=== PATIENT | male | born 1935 | race Caucasian/White ===

== ENCOUNTER 2021-01-23 17:54 | Observation (INO) | payer MEDICARE, SELFPAY ==
--- NOTE | 2021-01-23 17:52 | EKG12_ITS ---
Test Reason : ADM EKG Blood Pressure : / mmHG Vent. Rate : 061 BPM Atrial Rate : 061 BPM P-R Int : 216 ms QRS Dur : 096 ms QT Int : 454 ms P-R-T Axes : 043 -67 048 degrees QTc Int : 457 ms Sinus rhythm with 1st degree A-V block Left anterior fascicular block Nonspecific T wave abnormality Abnormal ECG When compared with ECG of 12-DEC-2005 10:06, CA interval has increased Criteria for Inferior infarct are no longer Present Confirmed by ALOK JENSEN, SAIMA ([id number]), avid editor JAVIER CHAVEZ ([id number]) on 01/24/2021 2:01:44 PM Referred By: AL Confirmed By:SAIMA DICKINSON MD
[2021-01-23 19:30] VITALS: BP 166/95; PULSE 80; RESP 20; TEMP 36.5; O2SAT 96
--- NOTE | 2021-01-23 19:54 | HP.PCM.HOS_ITS ---
HPI - General General Date of Admission: 01/23/21 HPI Narrative ARTIS BREWER, is a 85 M with a significant past medical history of hypertension; and CKD stage IV who presented to [facility] on 01/23/2021 with dyspnea. His dyspnea has been going on for a couple of years. In the past 3 months his dyspnea worsened. His dyspnea initially was with exertion but on the day of presentation his dyspnea was at rest. Associated with symptom is orthopnea and proximal nocturnal dyspnea. Also he reports a postnasal drip and chest pain. He has chest pain that he attributes hiatal hernia. [facility] Medical History Depression Enlarged prostate Gout HTN (hypertension) Home Medications allopurinol 100 mg PO BID 01/23/21 [History Last Taken Unknown] amlodipine 2.5 mg PO.IVFORM DAILY 01/23/21 [History Last Taken Unknown] colchicine 0.6 mg PO Q6H PRN PRN 01/23/21 [History Last Taken Unknown] doxazosin [Cardura] 4 mg PO BID 01/23/21 [History Last Taken Unknown] famotidine [Pepcid] 20 mg PO DAILY 01/23/21 [History Last Taken Unknown] fluoxetine 20 mg PO/SL DAILY 01/23/21 [History Last Taken Unknown] spironolactone 25 mg PO/SL DAILY 01/23/21 [History Last Taken Unknown] Allergy/AdvReac Type Severity Reaction Status Date / Time Gadolinium-MRI Contrast Allergy PT UNSURE Verified 01/23/21 20:40 Medium OF REACTION [CONTRAST] Iodine and Iodide Containing Allergy PT UNSURE Verified 01/23/21 20:40 Produc OF REACTION Family History Other Asthma Surgical History H/O left heart catheterization by ventricular puncture History of herniorrhaphy Hx of appendectomy Social History household members: none number of children: 3 service: No current occupational status: retired pets and animals: Yes (dog-shitzo) Smoking Status: Former smoker ROS ROS Narrative Constitutional: Denies fever, chills, fatigue, anorexia and change in weight Eyes: Denies blurry vision, change in eye color, change in vision, discharge from eye(s), double vision, erythema, eye pain, loss of vision or other HEENT: Denies abnormal hearing, dysphagia, ear pain, epistaxis, headache(s), hearing loss, nasal congestion, nasal discharge, post nasal drip, sinus pressure, sore throat or other Cardiovascular: Report chest pain. Reports dyspnea on exertion, orthopnea and paroxysmal nocturnal dyspnea. Denies palpitations Respiratory/Chest: Reports cough. Reports postnasal drip. Gastrointestinal: Denies abdominal pain, coffee ground emesis, constipation, diarrhea, dyspepsia, hematemesis, hematochezia, loose stools, melena, nausea, vomiting or other Genitourinary: Denies burning urination, difficulty urinating, dysuria, hematuria, nocturia, urinary frequency, urinary hesitancy, urinary incontinence, urinary urgency or other Musculoskeletal: Denies arthralgias, back pain, joint pain, joint stiffness, joint swelling, myalgias, neck pain or other Neurologic: Denies abnormal gait, abnormal speech, confusion, disequilibrium, dizziness, focal weakness, headache(s), numbness, paresthesias, seizure-like activity, seizures, syncope, tingling, tremor(s) or other Psychiatric: Denies anxiety, depression, homicidal ideation, suicidal ideation or other Endocrinology: Denies change in body appearance, cold intolerance, excessive sweating, heat intolerance, polydipsia, polyuria or other Hematologic/Lymphatic: Denies anemia, easy bleeding, easy bruising, lymphadenopathy or other Integumentary: Denies rashes Allergic/Immunologic: Denies rhinitis, hives, eczema, asthma or other Physical Exam Narrative Physical exam: General: Well-nourished, well-developed. Head: Normocephalic, atraumatic, no tenderness Eyes: PERRLA, EOMI ENT, no trauma, moist mucous membranes, no rhinorrhea Neck: Nontender, full range of motion, no spinal tenderness, deformities, step- off CVS: Regular rate and rhythm. S1-S2 present. No murmur, gallop or rub. Respiratory : clear to auscultation bilaterally, chest wall nontender, no wheezing Abdomen: Soft, nontender, nondistended, normal bowel sounds, no masses : Deferred Back: Nontender, no CVA tenderness, no midline spinal tenderness, deformities, step-offs Extremities: Nontender full range of motion, no trauma Skin: Normal color, no trauma, abrasions Neuro: Alert, oriented, cranial nerves II through XII grossly intact. Psychiatry: Normal mood. Normal affect. Not depressed. Not anxious. Assessment & Plan Assessment/Plan (1) Dyspnea: QUALIFIERS: Dyspnea type: dyspnea on exertion Qualified Code(s): R06.00 - Dyspnea, unspecified (2) Chest pain: QUALIFIERS: Chest pain type: unspecified Qualified Code(s): R07.9 - Chest pain, unspecified PLAN: Dyspnea on exertion/chest pain Place on a monitored bed at PCU Reportedly CTPA at outside hospital showed no PE, no overload, no cardiomegaly, no pneumonia. COVID-19 PCR was negative. EKG from outside hospital with nonspecific ST?T wave changes. Received 4 baby aspirin at outside hospital and was started on heparin drip at outside hospital. On arrival at our hospital ([facility]) high sensitivity troponin x2 was normal so heparin drip was discontinued. ASA 81 mg p.o. daily ordered We will check lipid panel. Stat EKG as needed for chest pain Echocardiogram and treadmill stress test ordered. Trend CBC and CMP. Gout Allopurinol continued. Hold as needed colchicine Hypertension Blood pressure is not within goal Amlodipine and spironolactone continued. Doxazosin continued. Trend blood pressure and adjust blood pressure medications. DVT prophylaxis SCD ordered Charges/Coding Visit Charges OBSV E&M: 89002 Initial observation care L2
--- NOTE | 2021-01-23 20:02 | ECHOD_ITS ---
Reason For Study: DYSPNEA Procedure This was a 2D Doppler, Color Flow transthoracic echocardiogram. Exam performed in department. Left Ventricle Normal LV size. Left ventricular systolic function is normal. The estimated ejection fraction is 60 %. No regional wall motion abnormalities noted. Right Ventricle Normal RV size. Normal systolic function. Atria Normal left atrium. Normal right atrium. Mitral Valve Normal mitral valve. Tricuspid Valve Normal tricuspid valve. Aortic Valve Trisinus/trileaflet aortic valve. Trivial aortic valve insufficiency. Pulmonic Valve Normal pulmonic valve. Great Vessels Normal aortic root. The pulmonary artery is normal size. Normal inferior vena cava. Pericardium/Pleural No pericardial effusion. MMode/2D Measurements & Calculations LVIDd: 5.0 cm IVSd: 1.3 cm Ao root diam: 4.0 cm LVIDs: 3.0 cm LVPWd: 1.3 cm RVDd: 4.0 cm FS: 39.4 % LAV(MOD-bp): 81.5 ml LVAd ap4: 35.6 cm2 LVAd ap2: 31.2 cm2 LAV(MOD-bp) Indexed: 37.9 ml/m2 LVLd ap4: 8.7 cm LVLd ap2: 9.0 cm LAV(MOD-sp2): 81.2 ml EDV(MOD-sp4): 115.9 ml EDV(MOD-sp2): 97.4 ml LAV(MOD-sp4): 81.3 ml EDV(sp4-el): 123.4 ml EDV(sp2-el): 92.1 ml LVAs ap4: 18.3 cm2 LVAs ap2: 15.2 cm2 LVLs ap4: 6.8 cm LVLs ap2: 6.9 cm ESV(MOD-sp4): 40.5 ml ESV(MOD-sp2): 29.1 ml ESV(sp4-el): 41.4 ml ESV(sp2-el): 28.2 ml EF(MOD-sp4): 65.0 % EF(MOD-sp2): 70.2 % EF(sp4-el): 66.4 % SV(MOD-sp4): 75.4 ml SV(MOD-sp2): 68.3 ml SV(sp4-el): 82.0 ml LA dimension(2D): 3.5 cm LA A4 area: 25.9 cm2 RA A4 area: 23.4 cm2 Doppler Measurements & Calculations MV E max wing: 58.2 cm/sec Lat Peak E' Wing: 6.0 cm/sec Med Peak E' Wing: 5.3 cm/sec MV A max wing: 91.0 cm/sec E/E' lat: 9.7 E/E' med: 11.0 MV E/A: 0.64 Ao V2 max: 135.9 cm/sec AI max wing: 440.3 cm/sec LV V1 max: 91.7 cm/sec Ao max P.4 mmHg AI max P.6 mmHg LV V1 max P.4 mmHg AI dec slope: 224.2 cm/sec2 AI P1/2t: 575.1 msec TR max wing: 264.9 cm/sec TR max P.1 mmHg ECHO/Echo Complete Interpretation Summary Normal LV size. Left ventricular systolic function is normal. The estimated ejection fraction is 60 %. Trivial aortic valve insufficiency. Ordering Physician: Jerry Byrnes Referring Physician: LYDIA BELLO Performed By: Sneha Santo, JENARO, RVT
[2021-01-23 20:20] VITALS: PULSE 73
[2021-01-23 20:41] VITALS: BMI 27.2
[2021-01-23 21:04] LABS: International Normalized Ratio 1.2; Prothrombin Time (Protime)PT. 14.2 SECONDS (11.7-14.9)
[2021-01-23 21:15] LABS: Magnesium 1.8 mg/dL (1.6-2.6)
[2021-01-23 21:21] LABS: Partial Thromboplast Time 91.9 Seconds (24.1-36.2)
[2021-01-23] MEDS: HEPARIN/D5w 25,000 UNITS 25,000 UNITS/250 ML IV.SOLN. 10 UNITS IV (21:32)
[2021-01-23 21:36] LABS: Troponin-I HS 8 pg/mL (3.0-78.0)
--- NOTE | 2021-01-23 21:36 | NURSING ---
Pt was admitted from [facility] heparin drip was infusing since 1630 this afternoon. rate was at 100 u/hr upon admission. after discussion from pharmacy titrated to 900ml/hr based on ptt, pt was never at 1200 units an hour as was entered here based on his weight. next ptt entered for 0330.
[2021-01-23 22:51] LABS: Troponin-I HS 7 pg/mL (3.0-78.0)
[2021-01-23] MEDS: 0.9% Normal Saline 1,000 ML 100 ML IV (23:22)
[2021-01-23] MEDS: Famotidine 20 MG Tablet PO (23:22)
[2021-01-23] MEDS: Acetaminophen 325 MG Tablet 650 MG PO (23:26)
--- NOTE | 2021-01-23 23:40 | NURSING ---
2 troponins negative, per physican order heparin drip dc'd at this time
[2021-01-24] VITALS (7 sets, daily range): BP systolic 166–171; BP diastolic 84–95; PULSE 55–72; RESP 16; TEMP 36.5–36.6; O2SAT 95–96
[2021-01-24] MEDS: Allopurinol 100 MG Tablet PO (00:07)
[2021-01-24] MEDS: Doxazosin 4 MG Tablet PO ×2 (00:07→12:44)
[2021-01-24] MEDS: Acetaminophen 325 MG Tablet 650 MG PO (03:26)
[2021-01-24 05:28] LABS: Troponin-I HS 7 pg/mL (3.0-78.0)
--- NOTE | 2021-01-24 05:36 | PCS.PANDOC ---
PANDEMIC DOCUMENTATION INITIATED: Date: 10/16/2020 Time: 190
--- NOTE | 2021-01-24 05:55 | EKG12_ITS ---
Test Reason : AM EKG Blood Pressure : / mmHG Vent. Rate : 057 BPM Atrial Rate : 057 BPM P-R Int : 224 ms QRS Dur : 096 ms QT Int : 434 ms P-R-T Axes : 061 -60 007 degrees QTc Int : 422 ms Sinus bradycardia with 1st degree A-V block with Premature atrial complexes Left axis deviation Nonspecific T wave abnormality Abnormal ECG When compared with ECG of 23-JAN-2021 20:42, MANUAL COMPARISON REQUIRED, DATA IS UNCONFIRMED Confirmed by ALOK JENSEN, SAIMA ([id number]), publications editor JAVIER CHAVEZ ([id number]) on 01/26/2021 7:23:34 AM Referred By: AL Confirmed By:SAIMA DICKINSON MD
[2021-01-24] MEDS: Aspirin 81 MG TAB.CHEW PO (06:04)
[2021-01-24] MEDS: hydrALAZINE 20 MG/ML Vial 10 MG IV (06:14)
[2021-01-24] MEDS: 0.9% Saline Lock 10 ML Syringe IV (06:15)
[2021-01-24] MEDS: 0.9% Normal Saline 1,000 ML 100 ML IV (06:20)
[2021-01-24 06:29] LABS: Absolute Lymphocyte Count 0.45 X10^3/uL (0.83-4.51); Absolute Neutrophil Count 12.8 X10^3/uL (2.0-7.7); Basophil# 0.02 X10^3/uL; Basophil% 0.1 % (0-1); Hematocrit 33.9 % (40-54); Lymphocyte # 0.45 X10^3/ul (0.83-4.51); Lymphocyte % 3.3 % (19-41); Mean Corp Hgb Conc 35.4 g/dL (32-36); Mean Corpuscular Hgb 32.3 pg (27.0-32.0); Mean Corpuscular Volume 91.1 fL (80-94); Monocyte# 0.21 X10^3/uL; Monocyte% 1.6 % (0-10); NRBC Flagged by Analyzer 0 % (0-5); Neutrophil # 12.75 X10^3/uL (2.7-7.7); Neutrophil % 94.6 % (47-70); POSITIVE DIFFERENTIAL YES; Platelet Count 114 K/mm3 (150-450); RBC Distribution Width SD 43.1 fl (35.1-43.9); Red Blood Count 3.72 M/mm3 (4.6-6.2); White Blood Count 13.5 K/mm3 (4.4-11.0)
[2021-01-24 06:32] LABS: Differential Indicated SCAN CRITERIA MET
[2021-01-24 06:57] LABS: ALB/GLOB Ratio 0.8 RATIO (0.9-2.4); AST(SGOT) 15 U/L (15-37); Alanine Aminotransfer ALT/SGPT 20 U/L (16-61); Albumin, Serum 2.8 g/dL (3.2-5.0); Alkaline Phosphatase 78 U/L (45-117); Anion Gap 9 (5-15); BUN 33 mg/dL (7-18); BUN/Creat Ratio 17.7 RATIO (10-20); Calcium,Total 8.4 mg/dL (8.5-10.1); Chloride 110 mmol/L (98-107); Cholesterol 135 mg/dL (200); Creatinine, Serum 1.86 mg/dL (0.70-1.30); EST Glomerular Filtration Rate 37 mL/min (>60); Est Glom Filt Rate - Afr Amer 45 mL/min (>60); Estimated Creatinine Clearance 31.29 ml/min; Globulin 3.5 g/dL (2.2-4.2); Glucose 159 mg/dL (74-106); High Density Lipoprotein 48 mg/dL; Potassium 4.5 mmol/L (3.5-5.1); Protein, Total 6.3 g/dL (6.4-8.2); Sodium Level 139 mmol/L (136-145); Triglycerides 56 mg/dL; Very Low Density Lipoprotein 11 mg/dL (5-40)
[2021-01-24 07:05] LABS: Differential Comment SCANNED
[2021-01-24] MEDS: Fluticasone 0.05% 1 SPRAY NASAL.SRY 2 SPRAY NASAL (10:07)
[2021-01-24] MEDS: amLODIPine 2.5 MG Tablet PO (12:44)
--- NOTE | 2021-01-24 13:03 | STRESSREP ---
Stress Test Report Exercise myocardial perfusion stress test. 85-year-old man with a history of shortness of breath. Stress protocol: Resting EKG demonstrates sinus bradycardia with a rate of 59 bpm normal intervals are noted resting blood pressure is 168/80 mmHg. The patient exercised according to regular Nik protocol for total duration of 4 minutes and 19 seconds. The maximum heart rate attained was 148 bpm which was 110% of maximum predicted heart rate the maximum workload was 7 metabolic equivalents. The patient maintained sinus rhythm throughout the recording with occasional premature ventricular complexes as well as premature atrial complexes. At rest there were no ST changes noted to suggest ischemia and at peak exercise upsloping ST changes were noted with did not meet the criteria for ischemia. There was shortness of breath noted at peak exercise the test was terminated due to the same. The peak blood pressure was 168/80 mmHg. No obvious clinical angina was noted. Myocardial perfusion protocol. 15.0 mCi of technetium 99m sestamibi was injected at rest. The patient exercised according to regular Nik protocol for 4 minutes and 19 seconds and at peak exercise 44.6 mCi of technetium 99m sestamibi was injected stress images were obtained stress and rest images were reconstructed and compared in the short axis vertical long horizontal long axis. Gated images were also obtained per Perfusion SPECT analysis: Review of the stress images demonstrate normal uptake of tracer noted in the septum anterior wall and lateral wall. There is a defect noted along the inferior wall in the mid and basal regions on the stress images. The resting images demonstrate a similar pattern. The above is suggestive of a previous inferior infarct. No obvious ischemia is noted. Gated SPECT analysis: The gated ejection fraction is 63%. Conclusion: Exercise myocardial perfusion stress test with no evidence of ischemia. Previous inferior infarct noted. Preserved ejection fraction.
--- NOTE | 2021-01-24 14:20 | PCM.DC ---
Discharge Instructions Diet Discharge Diet: Low fat / Low cholesterol Activity Discharge Activity: Return to Normal Activity Dressing / Incision Call your doctor if you observe: Fever of 101 or Higher, Shortness of breath, Dizziness, Fainting spells, Swelling in the ankles, Chest pain and Increased palpitations (irregular heartbeat) Follow Up Care Test Results: Test results from this visit will be discussed in further detail at your follow-up appointment, if applicable. Discharge Plan Admission Admit Date/Time: 01/23/21 17:54 Attending Provider: Cornelius Heredia Primary Care Provider: Alyssa Trevino Instructions Additional Instructions / Restrictions: Follow-up with your PCP in 3 to 5days to monitor your white blood cell count which was little bit elevated in the absence of fever. Also your activated partial thromboplastin time was elevated indicating a clotting dysfunction. I do recommend she follow-up for this as well to have outpatient lab work to monitor this as well as potential referral to a human resources hr generalist. Would also recommend outpatient follow-up with a service technician copier to evaluate the dyspnea and shortness of breath as well as chest pressure since the stress test and echo were unremarkable. Discharge Orders/Prescriptions Prescriptions: Continued allopurinol 100 mg Tablet 100 mg PO BID RF: 0 doxazosin [Cardura] 4 mg Tablet 4 mg PO BID RF: 0 fluoxetine 20 mg PO/SL DAILY RF: 0 amlodipine 2.5 mg PO.IVFORM DAILY RF: 0 spironolactone 25 mg PO/SL DAILY RF: 0 colchicine 0.6 mg Tablet 0.6 mg PO Q6H PRN PRN (Reason: gout) RF: 0 famotidine [Pepcid] 20 mg Tablet 20 mg PO DAILY RF: 0 Referrals / Follow Up: Alyssa Trevino MD [Primary Care Provider] - Within 1 Week Disposition Disposition (needs filled in before D/C Order can be placed): Home, Self Care
--- NOTE | 2021-01-24 14:26 | PCM.DC.SUM ---
Providers Date of Admission: 01/23/21 Primary Care Physician: Dr. Lydia Trevino MD Reason For Visit: CHEST PAIN, ? UNSTABLE ANGINA Diagnosis Discharge Diagnosis (1) Dyspnea: Status: Acute Code(s): R06.00 - Dyspnea, unspecified Qualifiers: Dyspnea type: dyspnea on exertion Qualified Code(s): R06.00 - Dyspnea, unspecified (2) Chest pain: Status: Acute Code(s): R07.9 - Chest pain, unspecified Qualifiers: Chest pain type: unspecified Qualified Code(s): R07.9 - Chest pain, unspecified Medications at Discharge Home Medications allopurinol 100 mg PO BID 01/23/21 amlodipine 2.5 mg PO.IVFORM DAILY 01/23/21 colchicine 0.6 mg PO Q6H PRN PRN 01/23/21 doxazosin [Cardura] 4 mg PO BID 01/23/21 famotidine [Pepcid] 20 mg PO DAILY 01/23/21 fluoxetine 20 mg PO/SL DAILY 01/23/21 spironolactone 25 mg PO/SL DAILY 01/23/21 Hospital Course Operations None Procedures 2-D Echocardiogram and Nuclear stress test Summary of Care Provided Minutes Spent on Discharge: 40 Hospital Course: Per HPI: ARTIS BREWER, is a 85 M with a significant past medical history of hypertension; and CKD stage IV who presented to [facility] on 01/23/2021 with dyspnea. His dyspnea has been going on for a couple of years. In the past 3 months his dyspnea worsened. His dyspnea initially was with exertion but on the day of presentation his dyspnea was at rest. Associated with symptom is orthopnea and proximal nocturnal dyspnea. Also he reports a postnasal drip and chest pain. He has chest pain that he attributes hiatal hernia. Hospital Course: 1. Acute on exertion with chest pain?85-year-old male presents to the hospital as a transfer from an outside hospital secondary to dyspnea on exertion and chest pain. He has been having dyspnea for the last several months but he states it is getting worse. He has difficulty breathing whenever he crosses his arms over his chest. He currently denies any chest pain or shortness of breath at this time and his stress test and echo were unremarkable for any ischemic changes. EKG and troponins are also normal. Of note he does have chronic kidney disease stage IV so his creatinine was little bit elevated here at 1.86 however we do not have any with comparisons from outside hospitals. Also of note he had an elevated white count without a fever. He denies any recent illnesses though he does have a postnasal drip. CTA of the chest at the outside hospital was unremarkable therefore I do recommend follow-up as an outpatient for this issue. Of note last night his activated partial thromboplastin time was elevated however it was noted in the admission note that he had been placed on a heparin drip at the outside hospital which was discontinued on admission here. Given the chronicity of his dyspnea I do recommend that he follow-up with pulmonology as an outpatient. I discussed with him the plan for discharge today and he expressed understanding of the risk benefits of going home and would like to go home today. Physical Exam Const alert, oriented x3 and no apparent distress General Appearance: cooperative HEENT normocephalic and moist oral mucous membranes Eyes PERRL, EOMs intact bilaterally and conjunctivae normal Neck supple and no JVD Resp normal respiratory effort, no retractions, no use of accessory muscles and clear to auscultation bilaterally Auscultation: Negative for crackles, rales, rhonchi or wheezes Cardio regular rate, regular rhythm, S1 normal heart sound, S2 normal heart sound and no murmurs GI soft to palpation, non-tender and non-distended; Negative for hepatosplenomegaly Extremity no clubbing, cyanosis or edema Skin no rashes or lesions noted Neuro no focal motor deficits and no sensory deficits noted Psych affect normal Appearance: appropriate Weight / BMI Weight Weight: 202 lb 9.677 oz Body Mass Index (BMI) 27.2 ABG / Lab / Microbiology Data Result Diagrams: 01/24/21 05:46 01/24/21 05:46 Laboratory: Laboratory Results - last 24 hr 01/23/21 20:35: PT 14.2, INR 1.2, APTT 91.9 H* 01/23/21 20:35: Magnesium 1.8 01/23/21 20:35: Troponin I High Sens 8 01/23/21 22:03: Troponin I High Sens 7 01/24/21 02:40: Troponin I High Sens 7 01/24/21 05:46: WBC 13.5 H, RBC 3.72 L, Hgb 12.0 L, Hct 33.9 L, MCV 91.1, MCH 32.3 H, MCHC 35.4, RDW Std Deviation 43.1, RDW Coeff of Ryanne 13.0, Plt Count 114 L, MPV 10.0, Immature Gran % (Auto) 0.400, Neut % (Auto) 94.6 H, Lymph % (Auto) 3.3 L, [place] % (Auto) 1.6, Eos % (Auto) 0.0, Baso % (Auto) 0.1, Absolute Neuts (auto) 12.8 H, Absolute Lymphs (auto) 0.45 L, Nucleated RBC % 0, Differential Comment SCANNED 01/24/21 05:46: Sodium 139, Potassium 4.5, Chloride 110 H, Carbon Dioxide 20.0 L, Anion Gap 9, BUN 33 H, Creatinine 1.86 H, Estim Creat Clear Calc 31.29, Est GFR (MDRD) Af Amer 45 L, Est GFR (MDRD) Non-Af 37 L, BUN/Creatinine Ratio 17.7, Glucose 159 H, Calcium 8.4 L, Total Bilirubin 0.80, AST 15, ALT 20, Alkaline Phosphatase 78, Total Protein 6.3 L, Albumin 2.8 L, Globulin 3.5, Albumin/Globulin Ratio 0.8 L, Triglycerides 56, Cholesterol 135, LDL Cholesterol 76, VLDL Cholesterol 11, HDL Cholesterol 48 Radiography Diagnostic Testing: Radiology Impression Echocardiogram 01/23/21 20:02 Interpretation Summary Normal LV size. Left ventricular systolic function is normal. The estimated ejection fraction is 60 %. Trivial aortic valve insufficiency. Ordering Physician: Jerry Byrnes Referring Physician: LYDIA TREVINO Performed By: Sneha Santo, JENARO, RVT D/C Instructions Discharge Diet: Low fat / Low cholesterol Call your doctor if you observe: Fever of 101 or Higher, Shortness of breath, Dizziness, Fainting spells, Swelling in the ankles, Chest pain and Increased palpitations (irregular heartbeat) Meaningful Use Info Meaningful Use Diagnoses (Choose all that apply): None applicable Discharge Plan Admission Admit Date/Time: 01/23/21 17:54 Attending Provider: Cornelius Heredia Primary Care Provider: Lydia Trevino Instructions Additional Instructions / Restrictions: Follow-up with your PCP in 3 to 5days to monitor your white blood cell count which was little bit elevated in the absence of fever. Also your activated partial thromboplastin time was elevated indicating a clotting dysfunction. I do recommend she follow-up for this as well to have outpatient lab work to monitor this as well as potential referral to a relationship counselor. Would also recommend outpatient follow-up with a supervisor roving to evaluate the dyspnea and shortness of breath as well as chest pressure since the stress test and echo were unremarkable. Discharge Orders/Prescriptions Prescriptions: Continued allopurinol 100 mg Tablet 100 mg PO BID RF: 0 doxazosin [Cardura] 4 mg Tablet 4 mg PO BID RF: 0 fluoxetine 20 mg PO/SL DAILY RF: 0 amlodipine 2.5 mg PO.IVFORM DAILY RF: 0 spironolactone 25 mg PO/SL DAILY RF: 0 colchicine 0.6 mg Tablet 0.6 mg PO Q6H PRN PRN (Reason: gout) RF: 0 famotidine [Pepcid] 20 mg Tablet 20 mg PO DAILY RF: 0 Referrals / Follow Up: Lydia Trevino MD [Primary Care Provider] - Within 1 Week Disposition Disposition (needs filled in before D/C Order can be placed): Home, Self Care Charges/Coding Visit Charges OBSV E&M: 37792 Observation care discharge
--- NOTE | 2021-01-24 14:45 | CASEMGMT ---
MYRNA MCNEILL NOTE: Pt being discharged home. MYRNA MCNEILL to room. Introduced self and role. Pt states he lives alone and is independent. He denies having any concerns or need w/going home @ discharge. His dtr will take him home @ d/c and he denies having any concerns re: transportation. Monica RICON MYRNA MCNEILL
== END 2021-01-24 14:50 | disposition home or self-care (01) ==
PROVIDERS: Hospitalist; Admitting Provider Family Medicine; PCP Internal Medicine Infectious Disease; Visit Provider Family Medicine
DX: R07.89 Other chest pain (principal); R06.00 Dyspnea, unspecified; M10.9 Gout, unspecified; I12.9 Hypertensive chronic kidney disease with stage 1 through stage 4 chronic kidney disease, or unspecified chronic kidney disease; N18.4 Chronic kidney disease, stage 4 (severe); N40.0 Benign prostatic hyperplasia without lower urinary tract symptoms; F32.A Depression, unspecified; Z79.899 Other long term (current) drug therapy; Z87.891 Personal history of nicotine dependence; I44.0 Atrioventricular block, first degree; I44.4 Left anterior fascicular block; I35.1 Nonrheumatic aortic (valve) insufficiency
CPT/HCPCS: 36415; 78452; 80053; 80061; 83735; 84484; 85025; 85610; 85730; 93005; 93017; 93306; 96361; 96365; 96366; 96375; 99218; 99251; A9500; J7030; A4216; G0378; G0463

== ENCOUNTER → 2022-10-01 | Outpatient (CLI) | payer MEDICARE, SELFPAY | END | disposition home or self-care (01) | PROVIDERS: PCP Internal Medicine Infectious Disease; Referring Provider Internal Medicine Critical Care Medicine; Visit Provider Internal Medicine Critical Care Medicine | DX: G47.10 Hypersomnia, unspecified (principal) | CPT/HCPCS: 95810 ==

== ENCOUNTER → 2022-10-08 | Outpatient (CLI) | payer MEDICARE, SELFPAY ==
--- NOTE | 2022-10-08 14:37 | ECHOD_ITS ---
Reason For Study: Dyspnea/SOB Procedure This was a 2D Doppler, Color Flow transthoracic echocardiogram. Exam performed in department. Left Ventricle Normal LV size. Mild concentric left ventricular hypertrophy. Left ventricular systolic function is normal. Stage 1 diastolic dysfunction. No regional wall motion abnormalities noted. Right Ventricle Normal RV size. Normal systolic function. Atria The left atrium is mildly enlarged. Normal right atrium. Mitral Valve Normal mitral valve. Tricuspid Valve Normal tricuspid valve. Aortic Valve Trisinus/trileaflet aortic valve. Mild (1+) aortic valve insufficiency. Pulmonic Valve Normal pulmonic valve. Great Vessels Normal aortic root. The pulmonary artery is normal size. Normal inferior vena cava. Pericardium/Pleural No pericardial effusion. MMode/2D Measurements & Calculations LVIDd: 5.4 cm IVSd: 1.2 cm Ao root diam: 3.7 cm LVIDs: 3.9 cm LVPWd: 1.2 cm LA dimension: 4.2 cm RVDd: 4.3 cm FS: 27.9 % LAV(MOD-bp): 53.0 ml LA A4 area: 18.0 cm2 RA A4 area: 23.3 cm2 LAV(MOD-bp) Indexed: 24.3 ml/m2 LAV(MOD-sp2): 63.7 ml LAV(MOD-sp4): 44.3 ml Time Measurements MV dec time: 0.36 sec Doppler Measurements & Calculations MV E max wing: 38.2 cm/sec Lat Peak E' Wing: 6.0 cm/sec Med Peak E' Wing: 4.7 cm/sec MV A max wing: 71.4 cm/sec E/E' lat: 6.3 E/E' med: 8.1 MV E/A: 0.53 MV V2 max: 87.7 cm/sec MV P1/2t max wing: 52.0 cm/sec Ao V2 max: 104.4 cm/sec MV max P.1 mmHg MV P1/2t: 144.6 msec Ao max P.4 mmHg MV V2 mean: 36.2 cm/sec MV dec slope: 105.4 cm/sec2 Ao V2 mean: 73.9 cm/sec MV mean P.64 mmHg MVA(P1/2t): 1.5 cm2 Ao mean P.4 mmHg MV V2 VTI: 25.7 cm Ao V2 VTI: 23.3 cm AV (velocity ratio): 0.82 AI max wing: 412.4 cm/sec LV V1 max: 76.8 cm/sec PA V2 max: 93.1 cm/sec AI max P.1 mmHg LV V1 max P.4 mmHg PA V2 mean: 58.5 cm/sec LV V1 mean P.1 mmHg AI dec slope: 102.7 cm/sec2 LV V1 mean: 49.0 cm/sec AI P1/2t: 1176 msec LV V1 VTI: 19.1 cm ECHO/Echo Complete Interpretation Summary Normal LV size. Left ventricular systolic function is normal. Mild concentric left ventricular hypertrophy. Stage 1 diastolic dysfunction. Mild (1+) aortic valve insufficiency. Ordering Physician: Nik Reyes Referring Physician: Nik Reyes Performed By: Eloy Shah RCS
== END | disposition home or self-care (01) ==
PROVIDERS: PCP Internal Medicine Infectious Disease; Referring Provider Internal Medicine Critical Care Medicine; Visit Provider Internal Medicine Critical Care Medicine
DX: R06.00 Dyspnea, unspecified (principal); R06.02 Shortness of breath
CPT/HCPCS: 93306

== ENCOUNTER → 2022-10-24 | Outpatient (CLI) | payer MEDICARE, SELFPAY ==
--- NOTE | 2022-10-28 07:45 | PFT ---
INTRODUCTION: The patient is a an 87-year-old male who presents for pulmonary function studies secondary to a diagnosis of dyspnea. Respiratory therapy reported good patient effort. Bronchodilators were used during testing. INTERPRETATION: Forced expiration spirometry demonstrates no evidence of a large airways obstructive ventilatory defect. There was no significant response to aerosolized bronchodilators. Spirograms are of good quality and plateau gradually indicating slow emptying of the lungs. Body plethysmography was performed and revealed a decreased TLC to 6.42 L, 83% of predicted, indicative of a mild restrictive ventilatory impairment. Diffusing capacity by single breath CO was reduced to 66% of predicted. 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
== END | disposition home or self-care (01) ==
LOC: PSN 09:46
PROVIDERS: PCP Internal Medicine Infectious Disease; Referring Provider Internal Medicine Critical Care Medicine; Visit Provider Internal Medicine Critical Care Medicine
DX: R06.00 Dyspnea, unspecified (principal)
CPT/HCPCS: 94060; 94726; 94729

== ENCOUNTER → 2023-01-08 | Outpatient (CLI) | payer MEDICARE, SELFPAY ==
[2023-01-08 12:30] VITALS: PULSE 73; PULSE 74; PULSE 80; PULSE 90; PULSE 91; PULSE 95; PULSE 97; O2SAT 93; O2SAT 95; O2SAT 96; O2SAT 97; O2SAT 98
--- NOTE | 2023-01-10 07:40 | WT_ITS ---
PSN 6 Minute Walk Test 6 Minute Walk Test 6 Minute Walk Test: 6 Minute Walk Test PSN:6-Minute Walk Test Start: 01/08/23 12:37 Freq: Status: Active Protocol: RESP.6MINW Document 01/08/23 12:30 AEH (Rec: 01/08/23 12:41 [facility] Desktop) 6 Minute Walk Test Date Performed 01/08/23 Time Performed 12:30 Height 6 ft 1 in Weight: 87.09 kg Weight in Pounds 192.[address]: Dr Reyes Assistive device used: None Pre-test Oxygen Delivery Method Room Air Pulse Ox 95 Pulse Rate (60-100) 73 Dyspnea Delvis Scale (0-10) 0 Exertion Delvis Scale (6-20) 6 1st minute Oxygen Delivery Method Room Air Pulse Ox 98 Pulse Rate (60-100) 80 2nd minute Oxygen Delivery Method Room Air Pulse Ox 95 Pulse Rate (60-100) 90 3rd minute Oxygen Delivery Method Room Air Pulse Ox 93 Pulse Rate (60-100) 91 4th minute Oxygen Delivery Method Room Air Pulse Ox 96 Pulse Rate (60-100) 97 5th minute Oxygen Delivery Method Room Air Pulse Ox 97 Pulse Rate (60-100) 95 6th minute Oxygen Delivery Method Room Air Pulse Ox 95 Pulse Rate (60-100) 91 Dyspnea Delvis Scale (0-10) 0 Exertion Delvis Scale (6-20) 13 Post-test Oxygen Delivery Method Room Air Pulse Ox 95 Pulse Rate (60-100) 74 Full Laps Walked 15 Partial Lap, Number of Tiles Walked 0 Total Distance Walked (ft) 885 Interpretation Interpretation: The patient was able to ambulate 885 feet over the course of 6 minutes on room air with no assistive devices or breaks. The patient did experience desaturation as low as 93%, but had no tachycardia during testing. These findings are consistent with a musculoskeletal limitation exercise tolerance. Recommendations Recommendations: No supplemental oxygen is indicated at this time.
== END | disposition home or self-care (01) ==
LOC: PSN 12:12
PROVIDERS: PCP Internal Medicine Infectious Disease; Referring Provider Internal Medicine Critical Care Medicine; Visit Provider Internal Medicine Critical Care Medicine
DX: R06.00 Dyspnea, unspecified (principal)
CPT/HCPCS: 94618

== ENCOUNTER → 2023-03-05 | Outpatient (CLI) | payer MEDICARE, SELFPAY ==
--- OUTSIDE RECORDS SUMMARY | 2023-03-05 22:01 | XMS RPT_ITS | CCD ---
Author Name Unknown Address [address] [place] [address] Organization [facility] Care Team Providers Care Ferry Captain Name Role Phone SARAH KIMBERLEY E Unavailable Unavailable OMRAN, YASSER Unavailable Unavailable SARAH, KIMBERLEY E Unavailable Unavailable OMRAN, YASSER Unavailable Unavailable CRISTEL, KARLENE Unavailable Unavailable OMRANCHULAER Unavailable Unavailable KATI, FRANKIE Unavailable Unavailable OMRAN, YASSER Unavailable Unavailable WEINER, BRUNILDA Unavailable Unavailable LUCY, KATELYN Unavailable Unavailable JAMMOUL, ADHAM Unavailable Unavailable RILEY JALLOH Unavailable Unavailable OMRANCHULAER Unavailable Unavailable OMLYDIA COLEMAN Unavailable Unavailable LYDIA TREVINO Unavailable Unavailable BUCKTOWARSING, BHAVNISH Primary Care Unavaila ble BUCKTOWARSINBOBBY Booth Attending Unavaila ble BUCKTOWARSINBOBBY Booth Admitting Unavaila ble LYDIA TREVINO MD Consulting Unavailable PROVIDER, UNKNOWN Consulting Unavailable PROVIDER, UNKNOWN Consulting Unavailable PROVIDER, UNKNOWN Consulting Unavailable LYDIA TREVINO MD Consulting Unavailable BOBBY PAGAN MD Primary Care Unava ilable BOBBY PAGAN MD Attending Unava ilable BUCKBOBBY GALVAN MD Admitting Unava ilable PROVIDER, UNKNOWN Consulting Unavailable PROVIDER, UNKNOWN Consulting Unavailable PROVIDER, UNKNOWN Consulting Unavailable LYDIA TREVINO MD Consulting Unavailable LYDIA TREVINO MD Admitting Unavailable LYDIA TREVINO MD Attending Unavailable LYDIA TREVINO MD Primary Care Unavailable PROVIDER, UNKNOWN Consulting Unavailable PROVIDER, UNKNOWN Consulting Unavailable PROVIDER, UNKNOWN Consulting Unavailable LYDIA TREVINO MD Consulting Unavailable LYDIA TREVINO MD Admitting Unavailable LYDIA TREVINO MD Attending Unavailable LYDIA TREVINO MD Primary Care Unavailable PROVIDER, UNKNOWN Consulting Unavailable PROVIDER, UNKNOWN Consulting Unavailable PROVIDER, UNKNOWN Consulting Unavailable LYDIA TREVINO MD Consulting Unavailable LYDIA TREVINO MD Admitting Unavailable LYDIA TREVINO MD Attending Unavailable LYDIA TREVINO MD Referring Unavailable LYDIA TREVINO MD Primary Care Unavailable PROVIDER, UNKNOWN Consulting Unavailable PROVIDER, UNKNOWN Consulting Unavailable PROVIDER, UNKNOWN Consulting Unavailable JULIA, ANTONY PAC Primary Care Unavailable JULIA, ANTONY PAC Attending Unavailable LYDIA TREVINO MD Consulting Unavailable JULIA, ANTONY PAC Admitting Unavailable PROVIDER, UNKNOWN Consulting Unavailable PROVIDER, UNKNOWN Consulting Unavailable PROVIDER, UNKNOWN Consulting Unavailable LYDIA TREVINO MD Consulting Unavailable LYDIA TREVINO MD Attending Unavailable LYDIA TREVINO MD Admitting Unavailable LYDIA TREVINO MD Primary Care Unavailable PROVIDER, UNKNOWN Consulting Unavailable PROVIDER, UNKNOWN Consulting Unavailable PROVIDER, UNKNOWN Consulting Unavailable LYDIA TREVINO MD Consulting Unavailable LYDIA TREVINO MD Attending Unavailable LYDIA TREVINO MD Admitting Unavailable LYDIA TREVINO MD Primary Care Unavailable PROVIDER, UNKNOWN Consulting Unavailable PROVIDER, UNKNOWN Consulting Unavailable PROVIDER, UNKNOWN Consulting Unavailable LYDIA TREVINO MD Consulting Unavailable BOBBY PAGAN MD Primary Care Unava ilable BOBBY PAGAN MD Attending Unava ilBOBBY Ovalle MD Admitting Unava ilable PROVIDER, UNKNOWN Consulting Unavailable PROVIDER, UNKNOWN Consulting Unavailable PROVIDER, UNKNOWN Consulting Unavailable LYDIA TREVINO MD Consulting Unavailable LYDIA TREVINO MD Admitting Unavailable LYDIA TREVINO MD Attending Unavailable LYDIA TREVINO MD Primary Care Unavailable PROVIDER, UNKNOWN Consulting Unavailable PROVIDER, UNKNOWN Consulting Unavailable PROVIDER, UNKNOWN Consulting Unavailable Allergies Allergy Classification Reported Allergen(s) Allergy Type Date of Onset Reaction(s) Facility (1 source) IODIDE Drug allergy (disorder) [facility] Repository Problems Problem Classification Problem Date Documented Da te Episodic/Chronic Acute and unspecified renal failure (1 source) Acute kidney failure, unspecified; Translations: [Acute kidney failure, unspecified] Onset: 12-17-2022 Episodic Allergic reactions (1 source) Allergy status to other drugs, medicaments and biological substances status; Translations: [Allergy status to other drugs, medicaments and biological substances] Onset: 12-17-2022 Episodic Asthma (1 source) Unspecified asthma, uncomplicated; Translations: [Unspecified asthma, uncomplicated] Onset: 12-17-2022 Chronic Chronic kidney disease (1 source) Chronic kidney disease, unspecified; Translations: [Chronic kidney disease, unspecified] Onset: 12-17-2022 Chronic Essential hypertension (1 source) Essential (primary) hypertension; Translations: [Essential (primary) hypertension] Onset: 01-22-2023 Chronic Gout and other crystal arthropathies (1 source) Gout, unspecified; Translations: [Gout, unspecified] Onset: 04-29-2022 Chronic Hypertension with complications and secondary hypertension (1 source) Hypertensive chronic kidney disease with stage 1 through stage 4 chronic kidney disease, or unspecified chronic kidney disease; Translations: [Hypertensive chronic kidney disease with stage 1 through stage 4 chronic kidney disease, or unspecified chronic kidney disease] Onset: 12-17-2022 Chronic Other and unspecified benign neoplasm (1 source) Personal history of colonic polyps; Translations: [Personal history of colonic polyps] Onset: 12-17-2022 Episodic Other lower respiratory disease (2 sources) Shortness of breath; Translations: [Shortness of breath] Onset: 12-17-2022 Episodic Other nutritional; endocrine; and metabolic disorders (1 source) Lipoprotein deficiency; Translations: [Lipoprotein deficiency] Onset: 04-29-2022 Chronic Pneumonia (except that caused by tuberculosis or sexually transmitted disease) (1 source) Pneumonia (except that caused by tuberculosis or sexually transmitted disease); Translations: [PNEUMONIA DUE TO CORONAVIRUS DISEASE 2018] Onset: 12-17-2022 Viral infection (1 source) COVID-19; Translations: [COVID-19] Onset: 12-17-2022 Results Test Name Value Interpretation Reference Range Facil ity Encounters Encounter Date Encounter Type Care Provider Facility Start: 01-22-2023 End: 01-22-2023 ambulatory LYDIA JENSEN [facility] Start: 01-22-2023 End: 01-22-2023 ambulatory LYDIA JENSEN [facility] Start: 01-18-2023 End: 01-18-2023 ambulatory LYDIA JENSEN [facility] Start: 12-24-2022 ambulatory LYDIA JENSEN [facility] Start: 12-17-2022 End: 12-21-2022 ambulatory LYDIA JENSEN [facility] Start: 07-17-2022 End: 07-17-2022 ambulatory BHAVNISH BUCKTOWARZEYNEP [facility] Start: 04-29-2022 End: 04-29-2022 ambulatory LYDIA JENSEN JARED [facility] Start: 04-29-2022 End: 04-29-2022 [facility]: 04-22-2022 End: 04-22-2022 ambulatory LYDIA JENSEN JARED [facility] Start: 03-09-2018 Patient encounter procedure LYDIA TREVINO Facility:R Start: 03-06-2018 Patient encounter procedure RILEY JALLOH Facility:A Start: 03-04-2018 End: 03-07-2018 Evaluation and management of inpatient KARLENE FAM Facility:A Start: 12-03-2017 End: 12-04-2017 Patient encounter procedure KIMBERLEY SMITH Facility:[facility] Start: 11-27-2017 End: 11-28-2017 Patient encounter procedure KIMBERLEY SMITH Facility:[facility] Procedures Date Procedure Procedure Detail Performing Clinician Start: 04-29-2022 Urinalysis BHAVNISH B UCKTOWARSING Payers Date Payer Category Payer Self-pay 2018 Medicare [id number] 2017 Unknown [id number] 1935 Unknown [id number] 2.16.8 [id number] 1934 Unknown [id number] 2.16.8 [id number] 1934 Unknown [id number] 2.16.8 [id number] 1934 Unknown [id number] 2.16.8 [id number] 1934 Unknown [id number] 2.16.8 [id number] 1934 Unknown [id number] 2.16.8 [id number] 1934 Unknown [id number] 2.16.8 [id number] 1934 Unknown [id number] 2.16.8 [id number] 1934 Unknown [id number] 2.16.8 [id number] 1934 Unknown [id number] 2.16.8 [id number] 1934 Unknown [id number] 2.16.84 [id number] 1934 Unknown [id number] 2.16.84 [id number] 1934 Unknown [id number] 2.16.84 [id number] 1934 Unknown [id number] 2.16.84 [id number] 1934 Unknown [id number] 2.16.84 [id number] Medicare [id number] Discharge summary note 01-02-2023 Note Date & Type Note Facility 01-02-2023 Note [facility] DISCHARGE SUMMARY NAME ACCOUNT SEX AGE ADMIT DISCHARGE PT MED. RECORD# NUMBER DATE DATE TYPE ARTIS BREWER [id number] M 87 12/17/22 12/21/22 2 G [id number] ROOM: 312AR DATE OF : 1935 ATTENDING PHYSICIAN: Lydia Trevino ADMITTING DIAGNOSES: 1. COVID-19 infection. 2. Pneumonia. FINAL DIAGNOSES: 1. Left lobar pneumonia, bacterial. 2. COVID-19 infection, resolving. 3. Intractable cough, likely cause of shortness of breath. 4. Generalized weakness. 5. Some degree of depressive symptoms in the past. HOSPITAL COURSE: This 87-year-old gentleman with a history of hypertension, chronic kidney disease. He presented to the emergency room with severe cough and shortness of breath. His oxygenation dropped at one point to 88% on room air on admission. The patient was admitted, initiated on IV fluids. His chest x-ray did reveal left lower lobe pneumonia. His white count was elevated, and after treatment he did receive cough suppressant, as well as antibiotics. He started to improve slowly. His oxygenation remained within normal range. The patient did exhibit significant weakness and lack of interest in doing anything, which sometimes was associated with COVID-19, and I did start him on duloxetine, which he will get. His numbers improved, and on the day of discharge, the patient was feeling closer to baseline, and he was discharged home in stable condition. The patient was contemplating staying with one of his children for a week or two, and asked me how long his expected recovery is. I did explain to him for regular bacterial lobar pneumonia, the recovery is one to two months until his energy comes back to normal, but the likelihood in a week or 2, he will be functional even if he is living independently. DISPOSITION: Discharge destination: Home. MEDICATIONS ON DISCHARGE: The patient was discharged on Cymbalta 30 mg daily as a new treatment. He will get Ceftin 500 mg twice a day for 5 days, he will get Delsym 10 mL twice a day, and Tessalon 100 mg three times a day. He will receive vitamin D, vitamin C, and Zinc for 1 month [id number]. He will resume doxazosin, allopurinol, and amlodipine for his blood pressure. Page 1 of 2 ARTIS BREWER Discharge Summary ARTIS Booth OSMAN : 1935 DISCHARGE INSTRUCTIONS/PLAN: Diet: Regular, no added salt. Activity as tolerated. Dictated By: Lydia Trevino MD 12/21/22 12:59 JOB #: [id number] Transcribed By: am 12/23/22 08:00 Electronically signed by: E-Sign: LYDIA TREVINO MD 01/02/23 10:54 Page 2 of 2 ARTIS BREWER Discharge Summary [facility] Clinical Note 01-02-2023 Note Date & Type Note Facility 01-02-2023 Note [facility] PROGRESS NOTE NAME ACCOUNT SEX AGE ADMIT DISCHARGE PT MED. RECORD# NUMBER DATE DATE TYPE OSMAN [id number] M 87 12/17/22 2 ARTIS Emmy [address]81 ROOM: 312MO DATE OF : 1935 DICTATING PHYSICIAN: Lydia Trevino DATE OF SERVICE: December 20, 2022 SUBJECTIVE: Mr. Brewer continues to feel weak. He has still a severe cough at times, making him very short of breath. Saturations have been fluctuating between 82 during the night, which required oxygen. Now, he is back to room air. He was on 2 liters through the night. The likelihood is this followed an episode of cough, and now his saturation is still borderline between 93 and 94, but he is off oxygen. OBJECTIVE: VITAL SIGNS: Otherwise stable. HEENT: Unremarkable. NECK: Supple. LUNGS: Lungs are revealing crackles on the left side. HEART: The heart was regular. ABDOMEN: Soft. EXTREMITIES: Extremities revealed no edema. DIAGNOSTIC DATA: Laboratory data today reveals a white count of 8.5 and hemoglobin 10.6. Chemistries revealed a BUN of 34 and creatinine of 0.88, improved from admission. CRP is 21. ASSESSMENT/PLAN: 1. Acute bacterial pneumonia superimposed on COVID infection. The patient appears to be slightly better. 2. COVID-19 infection. The pneumonia is lobar in nature and unlikely to be COVID related. The patient was not hypoxic. He was treated with steroids, but at this point he is improving. He did not receive remdesivir. 3. Generalized weakness, multifactorial between the patient's age as well as the existence of pneumonia which is bacterial and COVID, which is expected. The patient is feeling weak. I did discuss this with him, and he is also starting to feel depressed. He wants to back to some normalcy in his life. I did explain to him maybe we should use some antidepressants such as Cymbalta to increase his energy and help with the depression, and it would have some other benefit. He is agreeable to try it. We will initiate Cymbalta 30 mg daily. Dictated By: Lydia Trevino MD 12/20/22 12:43 JOB #: [id number] Transcribed By: taz 12/20/22 12:48 Electronically signed by: E-Sign: LYDIA TREVINO MD 01/02/23 10:51 Page 1 of 1 OSMAN ARTIS Booth Progress Note [facility] Clinical Note 01-02-2023 Note Date & Type Note Facility 01-02-2023 Note [facility] PROGRESS NOTE NAME ACCOUNT SEX AGE ADMIT DISCHARGE PT MED. RECORD# NUMBER DATE DATE TYPE Justen [id number] Kam 87 12/17/22 2 ARTIS Booth [id number] ROOM: 312MO DATE OF : 1935 DICTATING PHYSICIAN: Lydia Trevino DATE OF SERVICE: December 19, 2022 SUBJECTIVE: The patient had a headache last evening. He says it has resolved. He is still having severe coughing and shortness of breath. The cough is mostly nonproductive. OBJECTIVE: VITAL SIGNS: He is afebrile. Blood pressure is 147/81. Saturation on room air is 91-92%. HEENT: Unremarkable. NECK: The neck was supple. LUNGS: Lungs revealed crackles in the left base posteriorly. HEART: The heart was regular. ABDOMEN: Soft. EXTREMITIES: Extremities revealed no edema. DIAGNOSTIC DATA: Laboratory data today has revealed his white count still elevated at 11.9. His hemoglobin is down to 10.5. Sodium is 137, BUN 31 and creatinine 2, which is slightly improved from yesterday. ASSESSMENT: COVID-19 infection, acute, with minimal hypoxia. Saturation is 91-92%. PLAN: At this point, we will go ahead and add steroids to his medications in conjunction with antibiotics. Due to lack of hypoxia, the patient may benefit from remdesivir therapy, but considering his viral infection has been more than a week this is less likely to be beneficial. I will repeat a chest x-ray in the morning and reassess. Dictated By: Lydia Trevino MD 12/19/22 12:24 JOB #: [id number] Transcribed By: taz 12/19/22 13:26 Electronically signed by: E-Sign: LYDIA TREVINO MD 01/02/23 10:50 Page 1 of 1 ARTIS BREWER Progress Note [facility] History and physical note 01-02-2023 Note Date & Type Note Facility 01-02-2023 [place] HISTORY & PHYSICAL NAME ACCOUNT SEX AGE ADMIT DISCHARGE PT MED. RECORD# NUMBER DATE DATE TYPE OSMAN [id number] Kam 87 12/17/22 2 ARTIS Booth [address] ROOM: 312MO DATE OF : [birth year] DICTATING PHYSICIAN: Lydia Trevino The patient was seen for the history and physical on December 18 at 10:30 a.m. CHIEF COMPLAINT: Cough and shortness of breath. HISTORY OF PRESENT ILLNESS: The patient is an 87-year-old gentleman with a history of hypertension. He was in his usual state of health. He started to get ill approximately over a week prior to this admission. He was checked for with a home test, and he was COVID-19 negative. Then, he later on with a PCR test was positive. The patient at that point went home. He was doing fairly well until the day of admission. His shortness of breath increased rapidly, and he did present to the emergency room. In the emergency room, the patient was afebrile. His oxygenation was appropriate. He did have a significant cough, and he did have crackles on his lung exam. The patient did have an elevated white count. At that point, the patient was diagnosed with COVID-19 infection in conjunction with acute lobar pneumonitis. The patient was admitted. When I saw the patient, his significant symptoms were basically a cough, which is quite severe, and that is when his shortness of breath gets really bad. He did not have any significant chest pain with this. PAST MEDICAL HISTORY: Past medical history for remarkable for (1) Hypertension. (2) Chronic kidney disease. (3) Reactive airway disease, mild. (4) History of colonic polyps. (5) History of hemorrhoids. (6) History of enlarged prostate. (7) History of back pain. (8) History of kidney stones. (9) Questionable history of gout. PAST SURGICAL HISTORY: Appendectomy. MEDICATIONS: Please refer to the medication reconciliation. ALLERGIES: The patient has allergies to iodine. FAMILY HISTORY: The patient has no premature vascular disease or cancer in his family. SOCIAL HISTORY: The patient is . He is retired. He does not smoke at present, and occasionally he has one drink. REVIEW OF SYSTEMS: The patient felt achy the last week with occasional headache, reduced energy, and cough. The cough is progressive now, still is nonproductive, Page 1 of 3 ARTIS BREWER History & Physical ARTIS BREWER :1935 occasional hurting in his ribs from the cough. No nausea or vomiting, abdominal pain, diarrhea, constipation, difficulty with urination, increased frequency or burning. PHYSICAL EXAMINATION GENERAL APPEARANCE: This is an 87-year-old gentleman lying in bed. He does appear to be in moderate distress. He did have a couple of episodes of coughing spells while I was examining him. VITAL SIGNS: Vital signs revealed his temperature to be 98.8, blood pressure was 163/83, saturation on room air is 92%. HEENT: Normocephalic and atraumatic. Pupils are round, equal, and reactive. Tongue is dry. NECK: Neck is supple. LUNGS: Revealed rhonchi and crackles in the left lower base. HEART: Regular. ABDOMEN: Soft. EXTREMITIES: Revealed no edema. DIAGNOSTIC DATA: Laboratory data has revealed a white count of 14.1, hemoglobin 12.1. Sodium is 140, potassium 4.7, BUN 33, creatinine 2.3. Bilirubin was 2. IMPRESSION: 1. Acute lobar pneumonia more likely lobar bacterial on the left side. 2. Acute COVID-19 infection, complicating factor. This appears to be more lobar pneumonia than COVID-19 pneumonia per se, but the possibility does exist. 3. Acute kidney injury with creatinine going to 2.3. The patient's baseline is around 1.7 to 1.8. 4. Hypertension, blood pressure slightly elevated and does not appear to be an issue. 5. Reactive airway disease, mild and not a problem at this point. 6. Intractable cough. PLAN: 1. The patient will be admitted to the hospital. 2. IV fluids. 3. Broad spectrum antibiotics with Zithromax and Rocephin. 4. For the COVID-19 infection, the patient is not needing oxygen. At this point, I will go ahead and use steroids due to the existence of pneumonia. 5. Cough suppressants. 6. Continue his antihypertensive and prostate medicine. Page 2 of 3 ARTIS BREWER History & Physical ARTIS BREWER :1935 7. Deep venous thrombosis prophylaxis. 8. Followup x-rays. 9. Monitor kidney function. 10. I had a lengthy discussion with the patient pertinent to his diagnosis. He does have lobar pneumonia. With his age, he had a very high PCI score for pneumonia, which increases his morbidity and mortality, and I did explain that to him. We will followup with a chest x-ray tomorrow. If he shows any evidence of COVID-19 pneumonitis, then we may initiate Remdesivir therapy. Dictated By: Lydia Trevino MD 12/19/22 11:54 JOB #: [id number] Transcribed By: am 12/19/22 12:20 Electronically signed by: E-Sign: (more content not included)... [facility] Summary Purpose Family History No Family History Records FoundNo Family History Records FoundNo Family History Records Found Advance Directives No Advanced Directives Records FoundNo Advanced Directives Records FoundNo Advanced Directives Records Found Additional Source Comments (unrecognized sect ion and content) No Status Records FoundNo Status Records FoundNo Status Records Found INFORMATION SOURCE (unrecogn ized section and content) DATE CREATED AUTHOR AUTHOR'S ORGANIZ ATION 02/10/2021 [facility] DATE CREATED AUTHOR AUTHOR'S ORGANIZ ATION 01/24/2023 [facility] FOR RECORDS PERTAINING TO PATIENTS WHO ARE OR HAVE BEEN ENROLLED IN A CHEMICAL DEPENDENCY/SUBSTANCEABUSE PROGRAM, SOME INFORMATION MAY BE OMITTED. This clinical summary was aggregated from multiple sources. Caution should be exercised in using it in the provision of clinical care. This summary normalizes information from multiple sources, and as a consequence, information in this document may materially change the coding, format and clinical context of patient data. In addition, data may be omitted in some cases. CLINICAL DECISIONS SHOULD BE BASED ON THE PRIMARY CLINICAL RECORDS. [employer] provides no warranty or guarantee of the accuracy or completeness of information in this document.
== END | disposition home or self-care (01) ==
LOC: SL 19:51
PROVIDERS: PCP Internal Medicine Infectious Disease; Referring Provider Nurse Practitioner Acute Care; Visit Provider Nurse Practitioner Acute Care
DX: G47.30 Sleep apnea, unspecified (principal)
CPT/HCPCS: 95811

== ENCOUNTER → 2024-04-08 | Outpatient (CLI) | payer MEDICARE, SELFPAY | END | disposition home or self-care (01) | LOC: PSN 12:43 | PROVIDERS: PCP Internal Medicine Infectious Disease; Referring Provider Nurse Practitioner Acute Care; Visit Provider Nurse Practitioner Acute Care | DX: R06.00 Dyspnea, unspecified (principal) | CPT/HCPCS: 94060; 94726; 94729 ==